=== PATIENT | female | born 1980 | race Two or more races ===

== ENCOUNTER 2019-05-21 10:56 | Emergency (ER) | payer MEDICAID, OTHER ==
[~2019-05-21] VITALS: Ht 172.7 cm; Wt 90.7 kg
[2019-05-21 11:05] VITALS: BP 152/81
[2019-05-21] MEDS ORDERED: IBUPROFEN 800 MG TAB PO ONE (13:45)
[2019-05-21] MEDS ORDERED: METHOCARBAMOL 500 MG TAB PO ONE (13:45)
== END 2019-05-21 13:57 | disposition home or self-care (01) ==
LOC: ER 10:56
DX: S29.012A Strain of muscle and tendon of back wall of thorax, initial encounter (principal); S29.011A Strain of muscle and tendon of front wall of thorax, initial encounter; S10.93XA Contusion of unspecified part of neck, initial encounter; Y04.2XXA Assault by strike against or bumped into by another person, initial encounter; Y93.89 Activity, other specified; Y92.89 Other specified places as the place of occurrence of the external cause; Y99.8 Other external cause status
CPT/HCPCS: 71046; 93005